=== PATIENT | female | born 1990 | race African-American/Black ===

== ENCOUNTER 2018-05-21 05:27 | Inpatient (IN) ==
[2018-05-21] MEDS ORDERED: Naloxone Inj 0.4 MG/ML Vial IV.PUSH PRN ×2 (06:10→18:06)
[2018-05-21] MEDS ORDERED: Oxytocin 30 Units/500ml Premix 30 UNITS/500 ML BAG IV.SIG ONE ×2 (06:10→15:41)
[2018-05-21] MEDS ORDERED: fentaNYL Citrate Inj 100 MCG/2 ML Ampul IV.PUSH PRN ×2 (06:10)
[2018-05-21] MEDS ORDERED: Sodium Chlor 0.9% Inj 500 ML IV.SIG PRN (06:10)
[2018-05-21] MEDS ORDERED: Sod Chloride 0.9% Inj 1,000 ML IV.CONT PRN (06:10)
[2018-05-21] MEDS ORDERED: Oxytocin 30 Units/500ml Premix 30 UNITS/500 ML BAG IV.CONT PRN (06:13)
[2018-05-21] MEDS ORDERED: Citric Acid/Sodium Citrate Liq 30 ML UDC PO SCH (06:15)
[2018-05-21 06:28] LABS: Bacteria,Urine Rare /hpf; Bilirubin,Urine Negative (Negative); Clarity,Urine Hazy (Clear); Color,Urine Yellow (Yellw/Straw); Glucose,Urine (UA) Negative (Negative); Hyaline Casts,Urine 1 /lpf (0-3); Leukocyte Esterase,Urine Moderate (Negative); Mucus,Urine Few /lpf (Occasional); Nitrite,Urine Negative (Negative); Squamous Epithelial Cell,Urine 2 /hpf (0-5)
[2018-05-21 06:29] LABS: Amphetamine Urine With Conf Neg (Neg); Benzodiazepine Urine With Conf Neg (Neg); Cocaine Urine With Conf Neg (Neg); Opiates Urine With Conf Neg (Neg)
[2018-05-21 06:31] LABS: Cannabinoid Urine With Conf Pos (Neg)
[2018-05-21 07:51] LABS: Baso % (Auto) 0.7 % (0.0-2.0); Eos # (Auto) 0.1 th/mm3 (0.0-0.4); Eos % (Auto) 0.9 % (0.0-4.0); Hematocrit 36.1 % (35.0-46.0); Hemoglobin 12.3 gm/dL (11.6-15.3); Lymph # (Auto) 1.7 th/mm3 (1.0-4.8); Lymph % (Auto) 24.4 % (9.0-44.0); Mean Corpuscular HGB Conc 34.1 % (32.0-36.0); Mean Corpuscular Hemoglobin 32.2 pg (27.0-34.0); Mean Corpuscular Volume 94.6 fL (80.0-100.0); Mean Platelet Volume 8.5 fL (7.0-11.0); Mono # (Auto) 0.7 th/mm3 (0.0-0.9); Mono % (Auto) 9.7 % (0.0-8.0); Neut # (Auto) 4.5 th/mm3 (1.8-7.7); Neut % (Auto) 64.3 % (16.0-70.0); Platelet Count 174 th/mm3 (150-450); Red Blood Count 3.82 mil/mm3 (4.00-5.30); Red Cell Distribution Width 13.6 % (11.6-17.2)
[2018-05-21] MEDS ORDERED: fentaNYL 2MCG-Bupiv 0.125% Epi 150 ML EPIDURAL ONE (09:11)
[2018-05-21] MEDS ORDERED: Lidocaine PF 1.5% Inj 20 ML Ampule ONE (09:16)
[2018-05-21] MEDS ORDERED: fentaNYL 2MCG-Bupiv 0.125% Epi 150 ML EPIDURAL PRN (10:31)
[2018-05-21] MEDS ORDERED: fentaNYL Citrate Inj 100 MCG/2 ML Ampul EPIDURAL ONE (10:31)
--- NOTE | 2018-05-21 15:41 | P.OBLABOR ---
Subjective Interval history: Pt comfortable with epidural, arom this am at 830 with clear fluid, cvx by me 6/ 100/-1..called to see pt to interpret FSE and IUPC Objective Vital Signs: Vital Signs - 8 hr 05/21/18 07:49 05/21/18 08:40 05/21/18 09:20 Temperature Pulse Rate 93 H 82 83 Respiratory Rate Blood Pressure 120/79 122/81 05/21/18 09:26 05/21/18 09:40 05/21/18 09:55 Temperature Pulse Rate 74 88 81 Respiratory Rate Blood Pressure 123/89 122/74 116/72 05/21/18 10:15 05/21/18 10:30 05/21/18 10:46 Temperature 98.1 F Pulse Rate 80 87 Respiratory Rate 20 Blood Pressure 109/78 104/79 05/21/18 10:58 05/21/18 12:05 05/21/18 12:15 Temperature 98.7 F Pulse Rate 77 83 72 Respiratory Rate 20 Blood Pressure 125/72 108/62 91/70 L 05/21/18 12:32 05/21/18 12:46 05/21/18 13:00 Temperature Pulse Rate 74 74 74 Respiratory Rate Blood Pressure 73/44 L 105/68 117/67 05/21/18 13:15 05/21/18 13:31 05/21/18 14:00 Temperature 98.9 F Pulse Rate 80 83 78 Respiratory Rate 20 Blood Pressure 109/64 111/61 109/63 Objective: Pelvic Exam: Cervix: 7-8/edematous cvx/caput 0 station Dilatation: [-] Effacement: [-] Station: [-] Presentation: [-] Membranes: [intact or ruptured] Uterine Contractions: [-] FHT's: Category: baseline 140s, great BTBV, mild to moderate variables with most ctxs with good return, overall reassuring Baseline: [-] Reactive: [-] Variability: [-] Decels: [-] Patient Started Active Labor: No Medical Induction of Labor: Yes Artificial Rupture of Membrane: Yes Assessment and Plan - Plan 40 + wks for induction with protracted labor throughout the day...now with edematous cvx...discussed case with pt and partner and rec delivery by csection....all questions answered and they agree...will proceed with c/s
[2018-05-21] MEDS ORDERED: Morphine Sulfate PF Inj 5 MG/10 ML Ampul ONE (15:46)
[2018-05-21] MEDS ORDERED: Lidocaine 2%/Epinephrine 1:200,000 PF Inj 20 ML Vial INFILTRATN ONE (15:58)
[2018-05-21] MEDS ORDERED: ceFAZolin 2 GM IV; once IV.SIG SCH (16:30)
[2018-05-21] MEDS ORDERED: Oxytocin 30 Units/500ml Premix 30 UNITS/500 ML BAG IV.SIG PRN (20:41)
[2018-05-22 00:06] VITALS: O2SAT 98
[2018-05-22] MEDS: ceFAZolin 1 GM Premix Inj 1 GM/50 ML PIGGYBACK IV.SIG SCH ×2 (00:41→09:17)
[2018-05-22 05:54] LABS: Baso % (Auto) 0.1 % (0.0-2.0); Hematocrit 34.1 % (35.0-46.0); Hemoglobin 11.7 gm/dL (11.6-15.3); Lymph # (Auto) 1.3 th/mm3 (1.0-4.8); Lymph % (Auto) 9.5 % (9.0-44.0); Mean Corpuscular HGB Conc 34.4 % (32.0-36.0); Mean Corpuscular Hemoglobin 32.5 pg (27.0-34.0); Mean Corpuscular Volume 94.4 fL (80.0-100.0); Mean Platelet Volume 8.2 fL (7.0-11.0); Mono # (Auto) 0.9 th/mm3 (0.0-0.9); Mono % (Auto) 6.9 % (0.0-8.0); Neut # (Auto) 11.4 th/mm3 (1.8-7.7); Neut % (Auto) 83.5 % (16.0-70.0); Platelet Count 175 th/mm3 (150-450); Red Blood Count 3.61 mil/mm3 (4.00-5.30); Red Cell Distribution Width 13.7 % (11.6-17.2); White Blood Count 13.7 th/mm3 (4.0-11.0)
[2018-05-22] MEDS ORDERED: Measles/Mumps/Rubella Vaccine Inj 0.5 ML Vial SQ ONE (16:00)
[2018-05-22] MEDS ORDERED: Diphtheria/Tetanus/Pertussis Vaccine Inj 0.5 ML Syringe IM ONE (16:00)
[2018-05-22] MEDS: Prenatal Vit/Ca/Iron/Folic Acid Tablet PO SCH (16:36)
--- NOTE | 2018-05-23 07:49 | MP ---
cc: Edilia Perez MD DATE OF OPERATION: 05/21/2018 PREOPERATIVE DIAGNOSIS: Intrauterine at 40+ weeks gestation with arrest of active phase of labor. POSTOPERATIVE DIAGNOSIS: Intrauterine at 40+ weeks gestation with arrest of active phase of labor. PROCEDURE PERFORMED: Primary low transverse section. SURGEON: Edilia Perez MD. ANESTHESIA: Epidural. FINDINGS AT SURGERY: Included a viable male weighing 7 pounds 9 ounces with Apgars 9 and 9. A very prominent sacrum and a large 7 cm lower segment uterine fibroid. COMPLICATIONS: None. ESTIMATED BLOOD LOSS: 800 mL. PROCEDURE IN DETAIL: After proper consents were obtained and adequate level of epidural was achieved, the patient was taken to the operating room due to arrest of active phase of labor at 7-8 cm. She was sterilely prepped and draped. A Vidal catheter was already placed. We then made a Pfannenstiel skin incision using sharp knife. We carried that down to the fascia using Bovie cautery. The fascia was nicked in the midline and extended superolaterally and to the side. We then sharply and bluntly dissected the muscles off of the fascia. Peritoneum was identified, grasped with the hemostats and entered sharply with the Metzenbaum scissors. We then extended it superiorly and inferiorly paying close attention to the bladder. We then placed the bladder blade. Bladder flap was developed. Bladder blade was replaced. We made a transverse incision in the lower uterine segment. This was extended using finger fracture technique. I delivered the vertex. It was very difficult to get the vertex out of the abdominal cavity, probably due to the fibroid and the prominent sacrum, so I actually cut the muscles using the bandage scissors to try to help with the space and eventually we were able to deliver the vertex. There was no cord. Bulb suction of the oropharynx and the nares in a controlled delivery of the body followed. With the delayed clamping of the cord for 45 seconds, we then clamped the cord, cut in between, and the was handed to the team in attendance. A viable male weighing 7 pounds 9 ounces with Apgars 9 and 9. At this time, cord blood sample was obtained. Placenta was removed. The uterus was exteriorized, wiped clean of clots and debris. Uterine incision was closed with a #1 chromic suture, starting at each apex, meeting in the midline in a running interlocking fashion. Excellent hemostasis was noted. Irrigation was performed of the abdominopelvic cavity. We placed the uterus back into the cavity. We reapproximated the muscles back together using interrupted sutures of 1-0 chromic with good reapproximation. I then went ahead and closed the fascia using 0 Vicryl starting at each apex, meeting in the midline in a running fashion. We then irrigated the subcutaneous. We closed the subcutaneous space using interrupted sutures of 3-0 Vicryl. We then closed the skin with lamin and all sponge, lap, and needle count were correct x3. Edilia Perez MD CCD/sv , 07:00 AM , 07:07 AM
[2018-05-23 08:25] VITALS: BP 125/71; PULSE 77; RESP 20; TEMP 98
[2018-05-23] MEDS: Prenatal Vit/Ca/Iron/Folic Acid Tablet PO SCH (09:53)
--- NOTE | 2018-05-23 10:38 | P.PNOB ---
Subjective Post day: 2 Interval history: doing well POD 2 from Cs for arrest of dilation Objective Vital Signs/I&O: Vital Signs 05/22/18 11:59 05/22/18 20:00 05/23/18 08:00 Temperature 97.6 F 98.3 F 98.0 F Pulse Rate 82 70 77 Respiratory Rate 20 18 20 Blood Pressure 121/68 136/66 125/71 Result Diagrams: 05/22/18 05:24 Objective Remarks: GENERAL: Well-nourished, well-developed patient. ABDOMEN/GI: Abdomen soft, non-tender. Fundus: Firm, non-tender at umbilicus. GENITOURINARY: Light to moderate bleeding. EXTREMITIES: No cyanosis or edema, non-tender, without signs of DVT. Medications and IVs: Active Medications Citric Acid/Sodium Citrate (Sodium Citrate/Citric Acid Liq) 30 ml PO [employer]CH[employer] JENNY Stop: 05/25/18 06:14 Fentanyl Citrate (Fentanyl Inj) 100 mcg IV.PUSH Q1H PRN PRN Reason: PAIN SCALE 6 TO 10 Lactated Ringer's (Lr 1000 Ml Inj) 1,000 mls @ 3,000 mls/hr IV.SIG UNSCH PRN PRN Reason: compromise or epidural Last Infusion: 05/21/18 09:25 Dose: Infused Sodium Chloride (Ns Inj) 500 mls @ 1,000 mls/hr IV.SIG UNSCH PRN PRN Reason: SEE LABEL COMMENTS Sodium Chloride (Ns Inj) 1,000 mls @ 100 mls/hr IV.CONT .Q10H PRN PRN Reason: SEE LABEL COMMENTS Oxytocin (Pitocin 30 Units/Ns 500 Ml Premix) 30 units in 500 mls @ 2 mls/hr IV.CONT TITRATE PRN; Protocol PRN Reason: For induction of labor Last Titration: 05/21/18 18:50 Dose: Infused Fentanyl/Bupivacaine/Sodium Chlor (Fentanyl 2 Mcg-Bupiv 0.125% Epi) 150 mls @ 12 mls/hr EPIDURAL PRN PRN PRN Reason: for Labor Pain Last Admin: 05/21/18 10:56 Dose: 12 mls/hr Oxytocin (Pitocin 30 Units/Ns 500 Ml Premix) 30 units in 500 mls @ 100 mls/hr IV.SIG UNSCH PRN PRN Reason: Heavy bleeding Cefazolin Sodium/Dextrose (Ancef 2 Gm Premix Inj) 2 gm in 50 mls @ 100 mls/hr IV.SIG GYRO MECH[employer]IC [facility] Stop: 05/24/18 16:29 Ketorolac Tromethamine (Toradol Inj) 30 mg IM Q6H PRN PRN Reason: SEE LABEL COMMENTS Lidocaine HCl (Xylocaine 1% Inj) 0.1 ml I-DERMAL PRN PRN PRN Reason: For IV start Stop: 05/24/18 06:09 Mineral Oil (Muri-Lube Oil) 10 ml TOPICAL PRN PRN PRN Reason: PRN perineal massage Naloxone HCl (Narcan Inj) 0.1 mg IV.PUSH Q2M PRN PRN Reason: for opiate reversal Ondansetron HCl (Zofran Inj) 4 mg IV.PUSH Q6H PRN PRN Reason: NAUSEA OR VOMITING Oxycodone/Acetaminophen (Percocet 5/325 Mg) 1 tab PO Q4H PRN PRN Reason: PAIN SCALE 3 TO 5 Last Admin: 05/22/18 20:51 Dose: 1 tab Oxycodone/Acetaminophen (Percocet 5/325 Mg) 2 tab PO Q4H PRN PRN Reason: PAIN SCALE 6 TO 10 Last Admin: 05/23/18 07:50 Dose: 2 tab Vit/Calcium/Iron/Folic Ac (Stuartnatal Plus 3) 1 tab PO DAILY [facility] Last Admin: 05/23/18 09:53 Dose: Not Given Sodium Chloride (Ns Flush) 2 ml IV.FLUSH BID [facility] Last Admin: 05/23/18 08:29 Dose: Not Given Sodium Chloride (Ns Flush) 2 ml IV.FLUSH PRN PRN PRN Reason: FLUSH AFTER USING IV ACCESS Assessment and Plan - Plan 40 + wks for induction with protracted labor throughout the day...now with edematous cvx...discussed case with pt and partner and rec delivery by csection....all questions answered and they agree...will proceed with c/s
--- NOTE | 2018-05-23 10:48 | P.DS ---
Date of admission: 05/21/18 05:27 Primary care physician: Srinivasan Alcaraz DO Brief History from admission: yony came to hospital 40 weeks and had arrext of dilitation at 8 cm and had CS, in hospital 2 days and requested DC home DS: Diagnosis - Discharge Diagnosis (1) delivery delivered Status: Acute DS: Medications - Discharge Medications Prescriptions: oxycodone-acetaminophen 2 tab PO Q4H PRN 3 Days #24 tab PRN Reason: Pain Scale 6 To 10 DS: Summary Hospital Course: patient came in arrested dilitation at 8 cm and had CS did well - Time Spent with Patient Total time spent providing and/or coordinating discharge services: Less than 30 minutes Exam Vital signs: Vital Signs 05/22/18 11:59 05/22/18 20:00 05/23/18 08:00 Temperature 97.6 F 98.3 F 98.0 F Pulse Rate 82 70 77 Respiratory Rate 20 18 20 Blood Pressure 121/68 136/66 125/71 - Constitutional no acute distress - Routine Neck Exam Present: supple - Routine Respiratory Exam Present: CTA bilaterally - Routine Cardiovascular Exam Present: RRR - Routine Extremities Exam Present: full ROM - Routine Skin Exam Present: intact - Routine Neurological Exam Present: oriented X3 Results Procedures completed during hospitalization: section Discharge Plan - Discharge Disposition Patient Disposition: 01 Discharge Home - Discharge Condition Condition: Good - Discharge Order Discharge Orders: Discharge Order (Routine); Ordered 05/23/18 Ordered By: Ignacio Davis - Physicians Team Primary Care Provider: Srinivasan Alcaraz Attending Provider: Edilia Christianson - Rxs /Orders / Referrals /Forms Prescriptions: New oxycodone-acetaminophen 5-325 mg Tablet 2 tab PO Q4H PRN (Reason: Pain Scale 6 To 10) 3 Days Qty: 24 RF: 0 Continue PNV OB+DHA tablet 1 tab PO DAILY Referrals: Edilia Christianson MD [Physician] - See Instructions Srinivasan Alcaraz DO [Primary Care Provider] - See Instructions - Post Discharge Care Plan Care Plan Goals: Congratulations on your new baby! We want your recovery to be ray and trouble free. Please Report the Following Symptoms to Your Doctor: -Temperature above 100.5 degrees -Redness of incision or excessive or foul smelling drainage -Unusual pain or calf pain -Increased vaginal bleeding -Painful or difficulty urinating -Feelings of extreme sadness or anxiety Goals to Promote Your Health * To prevent worsening of your condition and complications * To maintain your health at the optimal level Directions to Meet Your Goals Take your medications as prescribed Follow your dietary instruction Follow activity as directed Ensure plenty of rest for recovery Drink fluids for hydration Keep your appointments as scheduled Take your immunizations and boosters as scheduled If your symptoms worsen call your OB Physician, or go to an Urgent Care Center or Emergency Room Smoking is Dangerous to your health. Avoid second hand smoke Call the 24-hour crisis hotline for domestic abuse at
[2018-05-23] MEDS ORDERED: Prenatal Vit/Ca/Iron/Folic Acid Tablet PO SCH (16:30)
== END 2018-05-23 14:13 | disposition home or self-care (01) | DRG 787 ==
LOC: H2E 05:27 → HCIS 08:24 → H2E 08:26 → H1EA 17:51
PROVIDERS: ADMIT Obstetrics & Gynecology; ATTEND Obstetrics & Gynecology
CPT/HCPCS: 59025; 80101; 80301; 80307; 81001; 85025; 86900; 86901; G0431; G0479; G0481; G0483; J0131; J0690; J1100; J2274; J2405; J2590; J3010; J7120